=== PATIENT | male | born 1980 | race Caucasian/White ===

== ENCOUNTER 2019-10-06 20:44 | Emergency (ER) | payer BC ==
[~2019-10-06] VITALS: Ht 180.3 cm; Wt 81.6 kg
[2019-10-06 20:46] VITALS: BP 143/77
--- NOTE | 2019-10-06 21:03 | NUR ---
[facility] BEDSIDE EVALUATING PT
--- NOTE | 2019-10-06 21:03 | NUR ---
EKG PERFORMED AT BEDSIDE
--- NOTE | 2019-10-06 21:04 | NUR ---
DR BOOTH AT BEDSIDE EVALUATING PATIENT.
--- NOTE | 2019-10-06 21:04 | NUR ---
39M CHEST PAIN X 1 MONTH. RATES PAIN 6/10 AND DESCRIBES IT TIGHTNESS. NO SOB,N,V, OR FEVER. PT STATES THE PAIN IS LOCATED ON THE LEFT SIDE OF CHEST AND MOVES TO THE BACK BILATERALLY ON THE SCAPULA. NKA. NO PMH. NO RX
--- NOTE | 2019-10-06 21:05 | NUR ---
RAD AT BEDSIDE.
[2019-10-06] MEDS ORDERED: NACL 0.9% 500 ML IV ONE (21:15)
--- NOTE | 2019-10-06 21:41 | NUR ---
LABS DRAWN AND COLLECTED AND SENT TO LAB.
[2019-10-06 21:44] LABS: BASOPHILS % (AUTO) 0.5 % (0.0-2.0); EOSINOPHILS # (AUTO) 0.2 K/uL (0-0.4); EOSINOPHILS % (AUTO) 2.7 % (0.0-4.0); HEMATOCRIT 43.8 % (36-52); HEMOGLOBIN 14.7 g/dL (12.0-18.0); LYMPHOCYTES % (AUTO) 35.7 % (20.5-51.1); MEAN CORPUSCULAR HEMOGLOBIN 29 pg (27-31); MEAN CORPUSCULAR HGB CONC 34 g/dL (33-37); MEAN CORPUSCULAR VOLUME 86.2 fL (80-94); MONOCYTES # (AUTO) 0.7 K/uL (0.8-1.0); MONOCYTES % (AUTO) 8.7 % (1.7-9.3); NEUTROPHILS # (AUTO) 4.5 K/uL (1.8-7.7); NEUTROPHILS % (AUTO) 52.4 % (42.2-75.2); PLATELET COUNT (AUTO) 268 K/uL (140-450); RED BLOOD CELL COUNT(AUTO) 5.08 MIL/uL (4.20-6.10); RED CELL DISTRIBUTION WIDTH 13.4 % (11.6-13.7); WHITE BLOOD COUNT (AUTO) 8.5 K/uL (4.8-10.8)
[2019-10-06 22:12] LABS: ALBUMIN 4.2 g/dL (3.4-5.0); ANION GAP 10.4 (8-16); CARBON DIOXIDE 29.6 mmol/L (21-32); CREATININE 1.1 mg/dL (0.6-1.3); FREE T4 (FREE THYROXINE) 1.2 ng/dL (0.76-1.46); THYROID STIMULATING HORMONE 2.7 uIU/mL (0.34-3.74); TOTAL BILIRUBIN 0.4 mg/dL (0.0-1.0)
[2019-10-06 22:50] VITALS: BP 132/84
--- NOTE | 2019-10-06 22:50 | NUR ---
Patient discharged with v/s stable. Written and verbal after care instructions given and explained. Patient alert, oriented and verbalized understanding of instructions. Ambulatory with steady gait. All questions addressed prior to discharge. ID band removed. Patient advised to follow up with PMD. Rx of HYDROCYCHLOROQUINE SULFATE given. Patient educated on indication of medication including possible reaction and side effects. Opportunity to ask questions provided and answered.
== END 2019-10-06 22:50 | disposition home or self-care (01) ==
LOC: MED 20:44
DX: R00.2 Palpitations (principal); F12.10 Cannabis abuse, uncomplicated
CPT/HCPCS: 36415; 71045; 80053; 82550; 84439; 84443; 84484; 85025; 93005; 99285; J7030; Q0092